=== PATIENT | male | born 1945 | race Caucasian/White ===

== ENCOUNTER 2018-07-19 09:18 | Observation (INO) | payer OTHER ==
[2018-07-19] MEDS ORDERED: ALBUTEROL 2.5 MG/3 ML NEB SOL ONE (09:48)
[2018-07-19] MEDS ORDERED: Levofloxacin500mg IV 0 MG/0 ML BAG IV ONE (09:48)
[2018-07-19] MEDS ORDERED: predniSONE 20 MG TAB ONE (09:48)
[2018-07-19] MEDS ORDERED: IPRATROPIUM BROM 0.5MG/2.5ML ONE (09:48)
[2018-07-19 10:06] LABS: Absolute Lymphocytes (CBC) 1.2 K/uL (0.7-4.9); Absolute Neutrophil 9.4 K/uL (1.8-8.0); Basophils % 0.4 % (0-1.3); Hematocrit 51.4 % (39.6-49.0); Lymphocytes % 10.5 % (15.3-44.8); Monocytes % 8.3 % (3.3-12.3)
[2018-07-19] MEDS ORDERED: levoFLOXacin 500 MG TAB ONE (10:11)
--- NOTE | 2018-07-19 10:14 | RAD REPORT ---
EXAM DESCRIPTION: RAD - Chest Single View - 07/19/2018 10:08 am CLINICAL HISTORY: COPD Chest pain. COMPARISON: No comparisons FINDINGS: Portable technique limits examination quality. The lungs are mildly emphysematous but clear. The heart is normal in size. No displaced fractures. IMPRESSION: COPD.
[2018-07-19 10:21] LABS: Albumin 3.8 g/dL (3.4-5.0); Bilirubin Direct 0.2 mg/dL (0-0.2); Bilirubin Total 0.4 mg/dL (0.2-1.0); Protein, Total 7.8 g/dL (6.4-8.2)
--- NOTE | 2018-07-19 10:39 | EDPHYS ---
Physician Documentation [facility] Name: Wil Jacobson Age: 72 yrs Sex: Male : 1945 Arrival Date: 07/19/2018 Time: 09:21 Bed 20 Private MD: Babatunde Marti T ED Physician Chuy Gunn HPI: 07/19 09:50 This 72 yrs old Male presents to ER via Ambulatory with complaints of snw Breathing Difficulty, Congestion. 09:50 The patient has shortness of breath at rest. Onset: The symptoms/episode began/occurred snw suddenly, 5 day(s) ago, and became persistent. Duration: The symptoms are continuous. Associated signs and symptoms: Pertinent positives: non-productive cough. Severity of symptoms: At their worst the symptoms were moderate in the emergency department the symptoms are unchanged. It is unknown whether or not the patient has had similar symptoms in the past. sees Dr. Lee, went to this am and was sent to ED. 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 - Social history:: Smoking status: Patient uses tobacco products, smokes one pack cigarettes per day. - Ebola Screening: : No symptoms or risks identified at this time. ROS: 09:48 Eyes: Negative for injury, pain, redness, and discharge, ENT: Negative for injury, snw pain, and discharge, Neck: Negative for injury, pain, and swelling. 09:48 Cardiovascular: Negative for chest pain, palpitations, and edema. 09:48 Abdomen/GI: Negative for abdominal pain, nausea, vomiting, diarrhea, and constipation, Back: Negative for injury and pain, : Negative for injury, bleeding, discharge, and swelling, MS/Extremity: Negative for injury and deformity, Skin: Negative for injury, rash, and discoloration, Neuro: Negative for headache, weakness, numbness, tingling, and seizure. 09:48 Constitutional: Positive for body aches, malaise. 09:48 Respiratory: Positive for cough, dyspnea on exertion, orthopnea, shortness of breath, wheezing. Exam: 09:47 Head/Face: Normocephalic, atraumatic. Eyes: Pupils equal round and reactive to light, snw extra-ocular motions intact. Lids and lashes normal. Conjunctiva and sclera are non-icteric and not injected. Cornea within normal limits. Periorbital areas with no swelling, redness, or edema. ENT: Nares patent. No nasal discharge, no septal abnormalities noted. Tympanic membranes are normal and external auditory canals are clear. Oropharynx with no redness, swelling, or masses, exudates, or evidence of obstruction, uvula midline. Mucous membranes moist. Neck: Trachea midline, no thyromegaly or masses palpated, and no cervical lymphadenopathy. Supple, full range of motion without nuchal rigidity, or vertebral point tenderness. No Meningismus. Chest/axilla: Normal chest wall appearance and motion. Nontender with no deformity. No lesions are appreciated. 09:47 Back: No spinal tenderness. No costovertebral tenderness. Full range of motion. Skin: Warm, dry with normal turgor. Hero color with no rashes, no lesions, and no evidence of cellulitis. MS/ Extremity: Pulses equal, no cyanosis. Neurovascular intact. Full, normal range of motion. Neuro: Awake and alert, GCS 15, oriented to person, place, time, and situation. Cranial nerves II-XII grossly intact. Motor strength 5/5 in all extremities. Sensory grossly intact. Cerebellar exam normal. Normal gait. 09:47 Constitutional: The patient appears alert, awake, uncomfortable. 09:47 Cardiovascular: Rate: tachycardic, Rhythm: regular, Pulses: no pulse deficits are appreciated, JVD: is not appreciated. 09:47 Respiratory: moderate respiratory distress is noted, Respirations: labored breathing, asymmetrical chest movement, accessory muscle usage, prolonged exhalation, pursed lip breathing, shallow respirations, tachypnea, Breath sounds: decreased breath sounds, that are moderate, wheezing: expiratory that is severe, is heard diffusely. 09:47 Abdomen/GI: Inspection: distension, that is moderate, Palpation: abdomen is soft and non-tender. Vital Signs: 09:34 BP 180 / 92; Pulse 105; Resp 22; Temp 98.2; Pulse Ox 94% on R/A; Pain 0/10; hb 10:08 BP 138 / 79; Pulse 110; Resp 26; Pulse Ox 100% on Nebulizer Mask; em 11:45 BP 145 / 72; Pulse 101; Resp 24; Pulse Ox 98% on 3 lpm NC; em 12:57 BP 152 / 71; Pulse 98; Resp 24; Temp 98.5(O); Pulse Ox 98% on 3 lpm NC; Pain 0/10; em 14:01 BP 148 / 69; Pulse 97; Resp 16; Pulse Ox 99% on 3 lpm NC; em MDM: 09:33 Patient medically screened. snw 10:38 Data reviewed: vital signs, nurses notes. snw 07/19 09:37 Order name: Basic Metabolic Panel; Complete Time: 10:23 snw 07/19 09:37 Order name: CBC with Diff; Complete Time: 10:11 snw 07/19 09:37 Order name: LFT's; Complete Time: 10:23 snw 07/19 09:37 Order name: Magnesium; Complete Time: 10:23 snw 07/19 09:37 Order name: XRAY Chest (1 view); Complete Time: 10:17 snw 07/19 09:37 Order name: Blood Culture* snw 07/19 09:37 Order name: EKG; Complete Time: 09:38 snw 07/19 09:37 Order name: Cardiac monitoring; Complete Time: 10:01 snw 07/19 09:37 Order name: EKG - Nurse/Tech; Complete Time: 10:01 snw 07/19 13:43 Order name: Diet Heart Healthy; Complete Time: 13:43 em 07/19 09:37 Order name: IV Saline Lock; Complete Time: 10:01 snw 07/19 09:37 Order name: Labs collected and sent; Complete Time: 10:01 snw 07/19 09:37 Order name: O2 Per Protocol; Complete Time: 10: snw 07/19 09:37 Order name: O2 Sat Monitoring; Complete Time: 10:01 snw Administered Medications: 09:46 Drug: predniSONE 60 mg Route: PO; em 10:22 Follow up: Response: No adverse reaction em 09:46 Drug: Albuterol - atroVENT (3:1) (2.5 mg - 0.5 mg) 3 ml Route: Nebulizer; em 10:22 Follow up: Response: No adverse reaction; Marked relief of symptoms em 10:18 Drug: LevaQUIN 500 mg Route: PO; em 10:42 Follow up: Response: No adverse reaction em 10:42 Drug: Nicoderm CQ 21 mg/24 hr 1 patches Route: Transdermal; Site: anterior chest wall; em 11:30 Follow up: Response: No adverse reaction hb Disposition: 07/19/18 10:38 Hospitalization ordered by Ayaz Lee for Observation. Preliminary diagnosis is Chronic obstructive pulmonary disease, unspecified. - Bed requested for Telemetry/MedSurg (observation). - Status is Observation. em - Condition is Stable. - Problem is an acute exacerbation. - Symptoms have worsened. UTI on Admission? No Addendum: 07/21/2018 15:28 Co-signature as Attending Physician, Chuy Gunn MD. m a2 Signatures: Dispatcher [employer] EDMackenzie Gonsales, TOOL HARDENER-C TOOL HARDENER-Csnw Jonny Uribe, MANAGER CARD MANAGER CARD em Johana Catalan, ZOE RN Judith Winslow RN RN df Chuy Gunn MD MD ma2 Corrections: (The following items were deleted from the chart) 07/19 11:58 10:38 Hospitalization Ordered by Ayaz Lee DO for Observation. Preliminary df diagnosis is Chronic obstructive pulmonary disease, unspecified. Bed requested for Telemetry/MedSurg (observation). Status is Observation. Condition is Stable. Problem is an acute exacerbation. Symptoms have worsened. UTI on Admission? No. snw 14:10 11:58 07/19/2018 10:38 Hospitalization Ordered by Ayaz Lee DO for Observation. em Preliminary diagnosis is Chronic obstructive pulmonary disease, unspecified. Bed requested for Telemetry/MedSurg (observation). Status is Observation. Condition is Stable. Problem is an acute exacerbation. Symptoms have worsened. UTI on Admission? No. df
--- NOTE | 2018-07-19 10:39 | ER ---
Nurse's Notes [facility] Name: Wil Jacobson Age: 72 yrs Sex: Male : 1945 Arrival Date: 07/19/2018 Time: 09:21 Bed 20 Private MD: Babatunde Marti T Diagnosis: Chronic obstructive pulmonary disease, unspecified Presentation: 07/19 09:34 Presenting complaint: Patient states: SOB x 4 days, worse over last 2 days. Denies hb cough/fever. Transition of care: patient was not received from another setting of care. Onset of symptoms was July 16, 2018. Risk Assessment: Do you want to hurt yourself or someone else? Patient reports no desire to harm self or others. Care prior to arrival: None. 09:34 Method Of Arrival: Ambulatory hb 09:34 Acuity: LUCIO 2 hb 09:40 Initial Sepsis Screen: Does the patient meet any 2 criteria? RR > 20 per min. HR > 90 em bpm. Yes Does the patient have a suspected source of infection? Yes: Productive cough/pneumonia. 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 - Social history:: Smoking status: Patient uses tobacco products, smokes one pack cigarettes per day. - Ebola Screening: : No symptoms or risks identified at this time. Screenin:39 Abuse screen: Denies threats or abuse. Denies injuries from another. Nutritional hb screening: No deficits noted. Tuberculosis screening: No symptoms or risk factors identified. Fall Risk None identified. Assessment: 09:40 General: Appears in no apparent distress. uncomfortable, ill, Behavior is cooperative, em anxious, Denies fever. Pain: Denies pain. Neuro: Level of Consciousness is awake, alert, obeys commands, Oriented to person, place, time, situation. Cardiovascular: Reports shortness of breath, Denies chest pain, Rhythm is sinus tachycardia. Respiratory: Airway is patent Respiratory effort is labored, Respiratory pattern is tachypnea Breath sounds with wheezes bilaterally. GI: Abdomen is round non-distended. Derm: Skin is intact, is healthy with good turgor, Skin is pink, warm \T\ dry. Musculoskeletal: Range of motion: intact in all extremities. 09:55 Reassessment: I agree with previous assessment. hb 10:23 Reassessment: Patient appears in no apparent distress at this time. pt SPO2 94% after em breathing treatment, placed on 3 L via NC, reports improvement SPO2 98%. 10:44 Reassessment: Patient appears in no apparent distress at this time. Patient and/or em family updated on plan of care and expected duration. Pain level reassessed. Patient is alert, oriented x 3, equal unlabored respirations, skin warm/dry/pink. Dr. Lee at bedside Patient states symptoms have improved. 11:45 Reassessment: Patient appears in no apparent distress at this time. Patient and/or em family updated on plan of care and expected duration. Pain level reassessed. Patient is alert, oriented x 3, equal unlabored respirations, skin warm/dry/pink. RR 22-26 unlabored Patient denies pain at this time. Patient states feeling better. Patient states symptoms have improved. 13:01 Reassessment: Patient appears in no apparent distress at this time. Patient and/or em family updated on plan of care and expected duration. Pain level reassessed. Patient is alert, oriented x 3, equal unlabored respirations, skin warm/dry/pink. Patient denies pain at this time. Patient states feeling better. Patient states symptoms have improved. 13:58 Reassessment: Patient appears in no apparent distress at this time. Patient and/or em family updated on plan of care and expected duration. Pain level reassessed. Patient is alert, oriented x 3, equal unlabored respirations, skin warm/dry/pink. Vital Signs: 09:34 BP 180 / 92; Pulse 105; Resp 22; Temp 98.2; Pulse Ox 94% on R/A; Pain 0/10; hb 10:08 BP 138 / 79; Pulse 110; Resp 26; Pulse Ox 100% on Nebulizer Mask; em 11:45 BP 145 / 72; Pulse 101; Resp 24; Pulse Ox 98% on 3 lpm NC; em 12:57 BP 152 / 71; Pulse 98; Resp 24; Temp 98.5(O); Pulse Ox 98% on 3 lpm NC; Pain 0/10; em 14:01 BP 148 / 69; Pulse 97; Resp 16; Pulse Ox 99% on 3 lpm NC; em ED Course: 09:21 Patient arrived in ED. mr 09:22 Babatunde Marti MD is Private Physician. mr 09:32 [facility]C [facility] snw 09:32 Chuy Gunn MD is Attending Physician. snw 09:34 Arm band placed on. hb 09:36 Triage completed. hb 09:40 Patient has correct armband on for positive identification. Placed in gown. Bed in low em position. Call light in reach. Side rails up X2. Adult w/ patient. night monitor on. Pulse ox on. NIBP on. 09:46 Jonny Uribe LVN is Primary Nurse. em 09:50 Inserted saline lock: 20 gauge in right forearm, using aseptic technique. Blood em collected. 09:50 Initial lab(s) drawn, by me, sent to lab. First set of blood cultures drawn. em 10:05 EKG done, by health technical writer. reviewed by Mackenzie GARNER. sm3 10:07 X-ray completed. Portable x-ray completed in exam room. Patient tolerated procedure tm4 well. 10:08 XRAY Chest (1 view) In Process Unspecified. EDMS 10:37 Ayaz Lee DO is Hospitalizing Provider. snw 13:00 No provider procedures requiring assistance completed. Patient admitted, IV remains in em place. Administered Medications: 09:46 Drug: predniSONE 60 mg Route: PO; em 10:22 Follow up: Response: No adverse reaction em 09:46 Drug: Albuterol - atroVENT (3:1) (2.5 mg - 0.5 mg) 3 ml Route: Nebulizer; em 10:22 Follow up: Response: No adverse reaction; Marked relief of symptoms em 10:18 Drug: LevaQUIN 500 mg Route: PO; em 10:42 Follow up: Response: No adverse reaction em 10:42 Drug: Nicoderm CQ 21 mg/24 hr 1 patches Route: Transdermal; Site: anterior chest wall; em 11:30 Follow up: Response: No adverse reaction hb Outcome: 10:38 Decision to Hospitalize by Provider. snw 13:58 Admitted to Med/surg accompanied by tech, family with patient, via wheelchair, room em 218, with oxygen, with chart, Report called to ZOE Wolff 13:58 Condition: good 13:58 Instructed on the need for admit, Demonstrated understanding of instructions. 14:10 Patient left the ED. em Signatures: Dispatcher [employer] EDMS Mackenzie Leger, DIRECTOR OF PHILANTHROPY-C DIRECTOR OF PHILANTHROPY-Csnw Geno Perez, Perla tm4 Jonny Uribe, GEOSPATIAL APPLICATIONS DEVELOPER GEOSPATIAL APPLICATIONS DEVELOPER em Johana Catalan RN RN Maria Fernanda Riddle 3 Corrections: (The following items were deleted from the chart) 14:02 14:01 BP 148 / 69; Pulse 97bpm; Resp 16bpm; Pulse Ox 99% RA; em em
[2018-07-19] MEDS ORDERED: NICOTINE 21 MG/PAT TD ONE (10:47)
--- NOTE | 2018-07-19 11:11 | P.HP ---
Certification for Inpatient Patient admitted to: Observation With expected LOS: <2 Midnights Patient will require the following post-hospital care: None Practitioner: I am a practitioner with admitting privileges, knowledge of patient current condition, hospital course, and medical plan of care. Services: Services provided to patient in accordance with Admission requirements found in Title 42 Section 412.3 of the Code of Federal Regulations Patient History Date of Service: 07/19/18 Primary Care Provider: Dr. Marti Reason for admission: Shortness of breath History of Present Illness: 72-year-old male presented to the emergency room with shortness of breath. Patient with history of COPD, tobacco abuse, alcohol abuse and hypertension. Patient presented with shortness of breath. He reports this started on Monday. He denies any fever, chills. Increased wheezing noted. Patient reports a history of bronchitis in the distant past. Patient is taking inhalers as recommended. In the ER patient was evaluated. Patient was given several breathing treatments including IV steroid. Blood pressure 141/71. On lab white count 11.1. Hemoglobin 17.5. Sodium 134, potassium 4.0, BUN of 15, creatinine 0.9 with a GFR 78. Glucose 109. AST 67. Chest x-ray showed no evidence of pneumonia. Patient was admitted for observation. When I saw the patient ER, he appeared stable. Respiratory status improved. Patient on nasal cannula. Patient reports alcohol and tobacco abuse. He still drinks about 4 glasses of liquor per day. Home medications list reviewed: Yes - Past Medical/Surgical History Diabetic: No -: COPD -: Tobacco abuse -: Alcohol abuse -: Hypertension -: GERD -: Hernia repair Psychosocial/ Personal History: Patient is . He has 1 child. He is retired. - Family History Father -: Cancer (Throat cancer) - Social History Smoking Status: Heavy Tobacco smoker (>10 cigarettes/day) Counseled patient to stop smoking for: less than 10 minutes Smoking therapy provided: Yes Patient receptive to therapy: No Alcohol use: Yes CD- Drugs: No Caffeine use: Yes Place of Residence: Home Review of Systems General: As per HPI Eyes: Unremarkable ENT: Nose Congestion, As per HPI Respiratory: Cough, Shortness of Breath, Wheezing, As per HPI Cardiovascular: Unremarkable Gastrointestinal: Unremarkable Genitourinary: Unremarkable Musculoskeletal: Unremarkable Integumentary: Unremarkable Neurological: Unremarkable Lymphatics: Unremarkable Physical Examination - Physical Exam General: Alert, In no apparent distress, Oriented x3, Cooperative HEENT: Atraumatic, Normocephalic, PERRLA, Other (Nasal congestion bilateral) Neck: Supple, No Thyromegaly Respiratory: Expiratory wheezes (Bilateral), Inspiratory wheezes (Bilateral) Cardiovascular: Normal pulses, Regular rate/rhythm Gastrointestinal: Normal bowel sounds, Soft and benign, Non-distended, No ascites, No tenderness, No masses, No rebound, No guarding Musculoskeletal: No contractures, No erythema, No tenderness, No warmth Integumentary: No tenderness/swelling, No erythema, No warmth, No cyanosis Neurological: Normal speech, Normal strength at 5/5 x4 extr, Normal tone, Normal affect - Studies Laboratory Data (last 24 hrs) 07/19/18 09:50: WBC 11.8 H, Hgb 17.5, Hct 51.4 H, Plt Count 135 L 07/19/18 09:50: Sodium 134 L, Potassium 4.0, BUN 15, Creatinine 0.95, Glucose 109 H, Magnesium 2.0, Total Bilirubin 0.4, AST 67 H, ALT 72, Alkaline Phosphatase 92 Assessment and Plan - Plan Impression: COPD exacerbation Hypertension Tobacco abuse Alcohol abuse Mild dehydration Plan: COPD exacerbation: Patient will be admitted for treatment. Will continue with steroids and nebulized treatments. Will maintain sats above 90%. Will wean off oxygen. Will reassess again tomorrow. Check for influenza and strep. Will recheck chest x-ray in the morning. No pneumonia identified. Will start Zithromax for possible atypical pneumonitis. Tobacco and alcohol cessation addressed in detail. Will provide nicotine patch. Will check echocardiogram. Will provide medication for cough and congestion. Anticipate discharge in the next 24-48 hr. Hypertension: Will continue with his home medication. Will monitor and address appropriately. Tobacco abuse: Lifestyle modification education addressed. Will provide nicotine patch. Alcohol abuse: Alcohol cessation addressed in detail. Will provide Ativan as needed. Will start thiamine and folic acid. Mild dehydration: Will start low-dose IV fluids. Will monitor closely. Will reassess tomorrow. Discharge Plan: Home Plan to discharge in: 24 Hours - Advance Directives Does patient have a Living Will: No Does patient have a Durable POA for Healthcare: No - Code Status/Comfort Care Code Status Assessed: Yes (Full code.) Time Spent Managing Pts Care (In Minutes): 55
[2018-07-19] MEDS ORDERED: ACETAMINOPHEN 500 MG TAB PO PRN (14:03)
[2018-07-19] MEDS ORDERED: BENZONATATE 100 MG CAP PO PRN (14:03)
[2018-07-19] MEDS ORDERED: ONDANSETRON 4 MG/2 ML VIAL IV PRN (14:03)
[2018-07-19] MEDS ORDERED: LORazepam 2 MG/ML VIAL IV PRN (14:03)
[2018-07-19] MEDS ORDERED: IPRATROPIUM BROM 0.5MG/2.5ML NEB PRN (14:03)
[2018-07-19] MEDS ORDERED: ALBUTEROL 2.5 MG/3 ML NEB SOL NEB PRN (14:03)
[2018-07-19 14:43] LABS: Thyroid Stimulating Hormone 1.44 uIU/mL (0.360-3.740)
[2018-07-19] MEDS: NA CHLORIDE 0.9% 1,000 ML IV SCH (14:58)
--- NOTE | 2018-07-19 15:35 | EKG ---
Test Date: 2018-07-19 Test Time: 09:54:50 Cable Machine Operator: TIARA MEASUREMENT RESULTS: Intervals: Rate: 103 MS: 126 QRSD: 90 QT: 346 QTc: 453 [place]: P: 82 MS: 126 QRS: 48 T: 64 INTERPRETIVE STATEMENTS: Sinus tachycardia Nonspecific ST and T wave abnormality Abnormal ECG Compared to ECG 11/13/2000 16:31:00 ST (T wave) deviation now present Sinus rhythm no longer present Electronically Signed On 07-19-18 15:34:34 MOLDING SUPERVISOR by Trace Baer
[2018-07-19] MEDS ORDERED: ENOXAPARIN 40 MG/0.4 ML SQ SCH (17:00)
[2018-07-19 18:11] LABS: Urine Appearance CLEAR; Urine Blood NEGATIVE (NEG); Urine Color DK YELLOW; Urine Glucose NEGATIVE (NEG); Urine Protein 1+ (NEG); Urine Specific Gravity >=1.030 (1.005-1.030); Urine pH 5.5 (5.0-7.0)
[2018-07-19 18:21] LABS: Urine Bilirubin NEGATIVE (NEG)
[2018-07-19 18:22] LABS: Urine Microscopic Reflex ORDER UMIC
[2018-07-19 19:09] LABS: Urine RBC <5 /HPF (NONE SEEN)
[2018-07-19 19:10] LABS: Urine Bacteria <20 /HPF (NONE SEEN); Urine Culture Reflex Order NOT NEEDED; Urine Mucus 1+ /HPF (NONE SEEN)
[2018-07-19] MEDS: ARFORMOTEROL TARTRATE 15 MCG/2 ML VIAL.NEB NEB SCH (20:00)
[2018-07-19] MEDS: predniSONE 20 MG TAB PO SCH (20:49)
[2018-07-19] MEDS: FLUTICASONE 50MCG NASAL SPRAY NAS SCH (20:49)
[2018-07-19] MEDS: GUAIFENESIN 600 MG SA TAB PO SCH (20:49)
[2018-07-20] MEDS: NA CHLORIDE 0.9% 1,000 ML IV SCH (05:37)
[2018-07-20 05:59] LABS: Absolute Lymphocytes (CBC) 1.2 K/uL (0.7-4.9); Absolute Monocytes 0.5 K/uL (0.1-1.3); Basophils % 0.1 % (0-1.3); Eosinophils % 0.1 % (0-4.4); Lymphocytes % 14.2 % (15.3-44.8); MPV 10.4 fL (7.6-11.3); Monocytes % 5.8 % (3.3-12.3); RBC Red Blood Cell Count 4.47 M/uL (4.33-5.43)
[2018-07-20 06:24] LABS: BUN Blood Urea Nitrogen 16 mg/dL (7-18); Bicarbonate 26 mmol/L (21-32); Glucose Level 124 mg/dL (74-106); HDL Cholesterol 43 mg/dL (40-60); LDL Cholesterol, Calculated 111 (<130); Magnesium 2.1 mg/dL (1.8-2.4); Potassium 4.4 mmol/L (3.5-5.1); Sodium Level 135 mmol/L (136-145)
[2018-07-20] MEDS ORDERED: PANTOPRAZOLE 40MG TABLET PO SCH (06:30)
[2018-07-20] MEDS: ARFORMOTEROL TARTRATE 15 MCG/2 ML VIAL.NEB NEB SCH (07:45)
--- NOTE | 2018-07-20 08:57 | RAD REPORT ---
EXAM DESCRIPTION: RAD - Chest Pa And Lat (2 Views) - 07/20/2018 6:54 am CLINICAL HISTORY: follow up COPD Chest pain. COMPARISON: Chest Single View dated 07/19/2018 FINDINGS: Mild COPD is present. No focal infiltrate is detected. The heart is normal in size. No dis placed fractures. IMPRESSION: Mild COPD.
[2018-07-20] MEDS ORDERED: AZITHROMYCIN 250 MG TAB PO SCH (09:00)
[2018-07-20] MEDS ORDERED: NICOTINE 21 MG/PAT TD SCH (09:00)
[2018-07-20] MEDS ORDERED: ASPIRIN EC 81 MG TAB PO SCH (09:00)
[2018-07-20] MEDS ORDERED: FOLIC ACID 1 MG TABLET PO SCH (09:00)
[2018-07-20] MEDS ORDERED: THIAMINE HCL 100 MG TABLET PO SCH (09:00)
[2018-07-20] MEDS ORDERED: METOPROLOL XL 25 MG TAB PO SCH (09:00)
--- NOTE | 2018-07-20 09:35 | P.DS ---
Admission Date: 07/19/18 Discharge Date: 07/20/18 Primary Care Provider: Dr. Marti Disposition: ROUTINE DISCHARGE Discharge Condition: GOOD Reason for Admission: Shortness of breath Consultations: none Procedures: CXR: Mild COPD, no pneumonia Medical Problem List: COPD exacerbation Hypertension Tobacco abuse Alcohol abuse Mild dehydration Allergic rhinitis GERD Gout Brief History of Present Illness: 72-year-old male presented to the emergency room with shortness of breath. Patient with history of COPD, tobacco abuse, alcohol abuse and hypertension. Patient presented with shortness of breath. He reports this started on Monday. He denies any fever, chills. Increased wheezing noted. Patient reports a history of bronchitis in the distant past. Patient is taking inhalers as recommended. In the ER patient was evaluated. Patient was given several breathing treatments including IV steroid. Blood pressure 141/71. On lab white count 11.1. Hemoglobin 17.5. Sodium 134, potassium 4.0, BUN of 15, creatinine 0.9 with a GFR 78. Glucose 109. AST 67. Chest x-ray showed no evidence of pneumonia. Patient was admitted for observation. When I saw the patient ER, he appeared stable. Respiratory status improved. Patient on nasal cannula. Patient reports alcohol and tobacco abuse. He still drinks about 4 glasses of liquor per day. Hospital Course: Patient presented with increasing shortness of breath secondary to COPD exacerbation. Patient was hospitalized. Chest x-ray showed no pneumonia. Influenza test negative. Patient responded well to COPD treatment. Patient has significantly improved. At discharge he did not require oxygen. At discharge he will continue with prednisone 20 mg 1 pill twice daily for 5 days then 1 pill once daily for 5 days. He will also be given Tessalon Perles 100 mg 3 times a day as needed for cough and Mucinex 600 mg twice daily for congestion. Patient may continue with his home medication of Bevespi 1 puff twice daily and Pro air 2 puffs 3 times a day as needed for shortness of breath. Recommendation is for the patient to follow up with pulmonology as an outpatient to establish care and to further address his COPD. Education on COPD will be provided. Prior to discharge echocardiogram to be obtained. This can be followed up by his PCP. Patient with hypertension. This remained stable during his stay. Patient may continue with metoprolol XL 25 mg daily. Recommendation is to maintain blood pressures less 150/80. Further adjustment can be done by his PCP. Patient with tobacco and alcohol abuse. Cessation addressed in detail. Patient appears and plans to quit smoking. Patient will be provided nicotine patch once daily. This can be continued by his PCP. Other options may be offered as an outpatient. Patient will be provided thiamine 100 mg daily due to his alcohol use. Patient has GERD. Zantac has been discontinued. New medication Protonix 40 mg 1 pill once daily is recommended. Patient may benefit with GI evaluation as an outpatient to further evaluate. Patient likely with underlying allergic rhinitis. Patient may continue with Flonase 1 spray per nostril twice daily. Patient with gout. Patient will continue with his medication of allopurinol 300 mg daily. Vital Signs/Physical Exam: Temp Pulse Resp BP Pulse Ox 97.8 F 78 18 134/79 91 07/20/18 00:00 07/20/18 00:00 07/20/18 00:00 07/20/18 00:00 07/20/18 00:00 General: Alert, In no apparent distress, Oriented x3, Cooperative HEENT: Atraumatic Neck: Supple Respiratory: Clear to auscultation bilaterally, Normal air movement Cardiovascular: Normal pulses, Regular rate/rhythm Gastrointestinal: Normal bowel sounds, Soft and benign, Non-distended, No tenderness, No masses, No rebound, No guarding Musculoskeletal: No erythema, No tenderness, No warmth Integumentary: No tenderness/swelling, No erythema, No warmth, No cyanosis Neurological: Normal speech, Normal strength at 5/5 x4 extr, Normal tone, Normal affect Lymphatics: No axilla or inguinal lymphadenopathy Laboratory Data at Discharge: WBC 8.8 K/uL (4.3-10.9) D 07/20/18 05:03 Hgb 15.5 g/dL (13.6-17.9) 07/20/18 05:03 Hct 45.0 % (39.6-49.0) 07/20/18 05:03 Plt Count 116 K/uL (152-406) L 07/20/18 05:03 Sodium 135 mmol/L (136-145) L 07/20/18 05:03 Potassium 4.4 mmol/L (3.5-5.1) 07/20/18 05:03 BUN 16 mg/dL (7-18) 07/20/18 05:03 Creatinine 0.76 mg/dL (0.55-1.3) 07/20/18 05:03 Glucose 124 mg/dL (74-106) H 07/20/18 05:03 Magnesium 2.1 mg/dL (1.8-2.4) 07/20/18 05:03 Total Bilirubin 0.4 mg/dL (0.2-1.0) 07/19/18 09:50 AST 67 U/L (15-37) H 07/19/18 09:50 ALT 72 U/L (12-78) 07/19/18 09:50 Alkaline Phosphatase 92 U/L (45-117) 07/19/18 09:50 Triglycerides 231 mg/dL (<150) H 07/20/18 05:03 Cholesterol 200 mg/dL (<200) 07/20/18 05:03 HDL Cholesterol 43 mg/dL (40-60) 07/20/18 05:03 Cholesterol/HDL Ratio 4.65 07/20/18 05:03 Home Medications: Allopurinol 300 mg PO DAILY 07/19/18 Calcium Carbonate 1 tab PO TID 07/19/18 Glycopyrrolate/Formoterol Fum [Bevespi Aerosphere Inhaler] 1 unit IH BID Metoprolol Succinate 25 mg PO DAILY 07/19/18 Albuterol Sulfate [Proair Hfa] 8.5 gm IH TID PRN #1 hfa.aer.ad 07/20/18 Benzonatate [Tessalon Perle*] 100 mg PO TID PRN #30 cap 07/20/18 Fluticasone [Flonase 50MCG Nasal [place]*] 1 sprays MELISSA BID #1 btl 07/20/18 Guaifenesin [Mucinex] 600 mg PO BID #30 tab.er.12h 07/20/18 Nicotine [Nicoderm*] 21 mg TD DAILY #30 patch.td24 07/20/18 Pantoprazole [Protonix Tab*] 40 mg PO DAILYAC #30 tab 07/20/18 Thiamine HCl [Vitamin B-1*] 100 mg PO DAILY #30 tablet 07/20/18 predniSONE [Prednisone*] 20 mg PO SEECOM #15 tab 07/20/18 New Medications: Albuterol Sulfate [Proair Hfa] 8.5 gm IH TID PRN #1 hfa.aer.ad PRN Reason: Shortness Of Breath Benzonatate [Tessalon Perle*] 100 mg PO TID PRN #30 cap PRN Reason: Cough Fluticasone [Flonase 50MCG Nasal [place]*] 1 sprays MELISSA BID #1 btl Guaifenesin [Mucinex] 600 mg PO BID #30 tab.er.12h Nicotine [Nicoderm*] 21 mg TD DAILY #30 patch.td24 Pantoprazole [Protonix Tab*] 40 mg PO DAILYAC #30 tab predniSONE [Prednisone*] 20 mg PO SEECOM #15 tab Thiamine HCl [Vitamin B-1*] 100 mg PO DAILY #30 tablet Patient Discharge Instructions: 1. Patient will need to follow up his PCP in 1 week to follow up this hospitalization. 2. Patient presented with increasing shortness of breath secondary to COPD exacerbation. Patient was hospitalized. Chest x-ray showed no pneumonia. Influenza test negative. Patient responded well to COPD treatment. Patient has significantly improved. At discharge he did not require oxygen. At discharge he will continue with prednisone 20 mg 1 pill twice daily for 5 days then 1 pill once daily for 5 days. He will also be given Tessalon Perles 100 mg 3 times a day as needed for cough and Mucinex 600 mg twice daily for congestion. Patient may continue with his home medication of Bevespi 1 puff twice daily and Pro air 2 puffs 3 times a day as needed for shortness of breath. Recommendation is for the patient to follow up with pulmonology as an outpatient to establish care and to further address his COPD. Education on COPD will be provided. Prior to discharge echocardiogram to be obtained. This can be followed up by his PCP. 3. Patient with hypertension. This remained stable during his stay. Patient may continue with metoprolol XL 25 mg daily. Recommendation is to maintain blood pressures less 150/80. Further adjustment can be done by his PCP. 4. Patient with tobacco and alcohol abuse. Cessation addressed in detail. Patient appears and plans to quit smoking. Patient will be provided nicotine patch once daily. This can be continued by his PCP. Other options may be offered as an outpatient. Patient will be provided thiamine 100 mg daily due to his alcohol use. 5. Patient has GERD. Zantac has been discontinued. New medication Protonix 40 mg 1 pill once daily is recommended. Patient may benefit with GI evaluation as an outpatient to further evaluate. 6. Patient likely with underlying allergic rhinitis. Patient may continue with Flonase 1 spray per nostril twice daily. 7. Patient with gout. Patient will continue with his medication of allopurinol 300 mg daily. Diet: AHA Activity: Ad deisy Time spent managing pt's care (in minutes): 55
[2018-07-20] MEDS: GUAIFENESIN 600 MG SA TAB PO SCH (10:07)
[2018-07-20] MEDS: predniSONE 20 MG TAB PO SCH (10:07)
[2018-07-20] MEDS: FLUTICASONE 50MCG NASAL SPRAY NAS SCH (10:36)
--- NOTE | 2018-07-20 12:53 | ECHO ---
HEIGHT: 5 ft 11 in WEIGHT: 165 lb 0 oz DATE OF STUDY: 07/20/[address]: Ayaz Lee DO 2-DIMENSIONAL: YES M.MODE: YES DOPPLER: YES COLOR FLOW: YES TDS: PORTABLE: DEFINITY: BUBBLE STUDY: DIAGNOSIS: SHORTNESS OF BREATH CARDIAC HISTORY: CATHERIZATION: NO SURGERY: NO PROSTHETIC VALVE: NO PACEMAKER: NO MEASUREMENTS (cm) DIASTOLIC (NORMALS) SYSTOLIC (NORMALS) IVSd 1.0 (0.6-1.2) LA Diam 3.9 (1.9-4.0) LVEF 60% LVIDd 3.8 (3.5-5.7) LVIDs 2.6 (2.0-3.5) %FS 31% LVPWd 1.0 (0.6-1.2) Ao Diam 2.7 (2.0-3.7) 2 DIMENSIONAL ASSESSMENT: RIGHT ATRIUM: NORMAL LEFT ATRIUM: NORMAL RIGHT VENTRICLE: NORMAL LEFT VENTRICLE: NORMAL TRICUSPID VALVE: NORMAL MITRAL VALVE: NORMAL PULMONIC VALVE: NORMAL AORTIC VALVE: NORMAL PERICARDIAL EFFUSION: NONE AORTIC ROOT: NORMAL LEFT VENTRICULAR WALL MOTION: NORMAL DOPPLER/COLOR FLOW: MILD TRICUSPID REGURGITATION. NORMAL RIGHT VENTRICULAR SYSTOLIC PRESSURE. COMMENTS: NORMAL TWO DIMENSIONAL ECHOCARDIOGRAM. MILD TRICUSPID REGURGITATION. TECHNOLOGIST: MELIZA BENNETT
== END 2018-07-20 10:55 | disposition home or self-care (01) ==
LOC: ER 09:18 → ERHOLD 10:57 → 2ND 12:54
PROVIDERS: ADMIT Family Medicine; ATTEND Family Medicine
DX: J44.1 Chronic obstructive pulmonary disease with (acute) exacerbation (principal); I10 Essential (primary) hypertension; F10.10 Alcohol abuse, uncomplicated; E86.0 Dehydration; J30.9 Allergic rhinitis, unspecified; K21.9 Gastro-esophageal reflux disease without esophagitis; M10.9 Gout, unspecified; F17.210 Nicotine dependence, cigarettes, uncomplicated
CPT/HCPCS: 36415; 71045; 71046; 80048 ×2; 80061; 80076; 83735 ×2; 84439; 84443; 85025 ×2; 87040 ×2; 87070; 87081; 87804 ×2; 93005; 93306; 94640 ×2; 99285; G0378 ×2; J1650; J7030 ×2; J7605 ×2; 81003; 81015; J7512

== ENCOUNTER 2022-04-13 01:36 | Inpatient (IN) | payer OTHER ==
[2022-04-13 01:59] LABS: Protime INR 1.29
[2022-04-13 02:01] LABS: Absolute Lymphocytes (CBC) 3.8 K/uL (0.7-4.9); Lymphocytes % 28.7 % (15.3-44.8); MCV 78.2 fL (80-100); MPV 9.9 fL (7.6-11.3)
[2022-04-13 02:11] LABS: Urine Blood Trace-intact (Negative); Urine Glucose Negative (Negative); Urine Protein 2+ (Negative); Urine Specific Gravity 1.015 (1.005-1.030); Urine pH 5.5 (5.0-7.0)
[2022-04-13 02:12] LABS: Arterial Blood Carboxyhemoglob 0.9 % (0-1.5); Blood Gas Oxyhemoglobin 95.9 % (94-97); Blood O2 Saturation 98.4 % (92-98.5)
[2022-04-13] MEDS ORDERED: propofoL 1,000 MG/100 ML VIAL IV ONE (02:15)
[2022-04-13] MEDS ORDERED: NA CHLORIDE 0.9% 1,000 ML ONE (02:16)
[2022-04-13 02:32] LABS: Albumin 3.1 g/dL (3.4-5.0); Bilirubin Direct 0.3 mg/dL (0-0.2); Bilirubin Total 0.6 mg/dL (0.2-1.0); Magnesium 1.8 mg/dL (1.8-2.4); Potassium 3.5 mmol/L (3.5-5.1); Protein, Total 6.4 g/dL (6.4-8.2); Troponin High Sensitivity 37.8 pg/mL (<58.9)
[2022-04-13 02:54] LABS: SARS-CoV-2 Antigen Rapid Res Negative (Negative)
[2022-04-13 02:54] LABS: Urine Blood Negative (Negative); Urine Glucose Negative (Negative); Urine Protein 1+ (Negative)
[2022-04-13 02:57] LABS: Blood Morphology Comment NOT SEEN (NOT SEEN); Platelet Estimate ADEQ
[2022-04-13 03:10] LABS: Urine Bacteria <20 /HPF (<20); Urine RBC <5 /HPF (None Seen)
[2022-04-13] MEDS ORDERED: FENTANYL CITR 100 MCG/2 ML ONE (03:31)
--- NOTE | 2022-04-13 08:21 | ER ---
Nurse's Notes [facility] Name: Wil Jacobson Age: 76 yrs Sex: Male : 1945 Arrival Date: 04/13/2022 Time: 01:41 Bed 3 Private MD: Diagnosis: Cardiac arrest due to underlying cardiac condition;Hypotension, unspecified;Do not resuscitate Presentation: 04/13 02:05 Chief complaint: EMS states: stated on scene, " He was SOB all day today, around aa9 midnight he went to the restroom and fell lover, I noticed he stopped breathing." EMS states on arrival no pulse, no rhythm, ET placed. 20 G IV on L AC. Onset of symptoms was April 13, 2022 at 00:00. Care prior to arrival: Assisted ventilation, CPR via thumper performed by EMS IV initiated. 20 GA, in the left antecubital area. 02:05 Method Of Arrival: EMS: [facility] aa9 02:05 Acuity: LUCIO 1 aa9 03:00 Coronavirus screen: At this time, the client does not indicate any symptoms associated as6 with coronavirus-19. Ebola Screen: No symptoms or risks identified at this time. Initial Sepsis Screen:. Initial Sepsis Screen: Does the patient meet any 2 criteria? No. Patient's initial sepsis screen is negative. Does the patient have a suspected source of infection? No. Patient's initial sepsis screen is negative. Risk Assessment: Do you want to hurt yourself or someone else? Unable to obtain. Triage Assessment: 01:38 General: Behavior is unresponsive. Neuro: Level of Consciousness is unresponsive. aa9 Respiratory: Airway via oral intubation Trachea midline. 02:15 Pain: Unable to use pain scale. FLACC scale score is 0 out of 10. Patient is intubated. aa9 Patient is unresponsive. 02:15 General: Appears obese, intubated, bagged by EMT, Thumper in place on stretcher.. aa9 Neuro: Level of Consciousness is unresponsive, Oriented to none. Derm: Skin is pale, Skin temperature is cold. Historical: - Allergies: 02:08 Unable to obtain; aa9 - Home Meds: 02:08 Unable to obtain [Active]; aa9 - PMHx: 02:08 COPD; Tachycardia; Cirrhosis of liver; aa9 - PSHx: 02:08 Unable to Obtain; aa9 - Immunization history:: Adult Immunizations unknown. - Social history:: Smoking status: unknown. Screenin:00 Abuse screen: Denies threats or abuse. Denies injuries from another. Nutritional as6 screening: No deficits noted. Tuberculosis screening: No symptoms or risk factors identified. Fall Risk None identified. Assessment: 01:38 General: Appears obese, Behavior is unresponsive. Pain: Unable to use pain scale. aa9 Patient is intubated. 01:38 Neuro: Level of Consciousness is unresponsive. aa9 01:38 Cardiovascular: Edema is 4+ to left lower thigh, left knee, left midcalf, left ankle, aa9 left foot, left toes, right lower thigh, right knee, right midcalf, right ankle, right foot and right toes. Respiratory: Airway via oral intubation Respiratory pattern is agonal. Derm: Skin is pale, Skin temperature is cold. 01:38 General: Dr Montague, Diana RN, speech professor, Yokasta RN, Rito RT at bedside to receive pt via aa9 stretcher. 01:55 General: Levophed started at 18 G on R AC per Dr. Montague, IV site without redness, aa9 irritation or swelling. . 01:55 Pain: Unable to use pain scale. FLACC scale score is 0 out of 10. Patient is intubated. aa9 Patient is unresponsive. Respiratory: Airway via oral intubation Trachea midline Respiratory pattern is agonal. Derm: Skin is pale, Skin temperature is cold. 02:00 General: Behavior is unresponsive. Pain: Unable to use pain scale. FLACC scale score is aa9 0 out of 10. Patient is intubated. Patient is unresponsive. Neuro: Level of Consciousness is unresponsive, Oriented to none. Respiratory: Airway via oral intubation Trachea midline Respiratory pattern is agonal. Derm: Skin is pale, Skin temperature is cold. 02:04 General: Hill catheter placed with temperature monitoring, urine is clear and yellow, aa9 gravity draining. . 02:29 General: Behavior is unresponsive. Pain: Unable to use pain scale. FLACC scale score is aa9 0 out of 10. Patient is intubated. Patient is unresponsive. Neuro: Level of Consciousness is unresponsive, Oriented to none. Cardiovascular:. Respiratory: Breath sounds with crackles bilaterally. : Hill in place to gravity drainage Urine is clear. 02:29 Derm: Skin is pale, Skin temperature is cold. aa9 02:36 Neuro: Level of Consciousness is unresponsive. aa9 03:02 Neuro: Pupils are non-reactive. as6 04:46 Reassessment: pt spouse Janice Jacobson at bedside with Dr Montague states pt has an advanced bb directive and does not want any life saving measures and does not want to continue any life saving measures. 04:46 General: Per request, Levophed, propofol, NS drips are discontinued. ET tube with aa9 ventilator in place, Hill in place draining clear yellow urine, connected to monitor. . Neuro: Level of Consciousness is unresponsive, Oriented to none. Respiratory: Airway via oral intubation Trachea midline Respiratory pattern is agonal. Derm: Skin is pale, Skin temperature is cold. 05:38 General: RT removed ET. aa9 05:38 General: at bedside. Pain: Unable to use pain scale. FLACC scale score is 0 out of aa9 10. Patient is unresponsive. Neuro: Level of Consciousness is unresponsive, Oriented to none. Respiratory: Airway is compromised Trachea midline Respiratory effort is labored, Respiratory pattern is agonal snoring Sputum is thick, brown. : Hill in place to gravity drainage Urine is clear. Derm: Skin is pale, Skin temperature is cold. 05:55 Pain: Unable to use pain scale. FLACC scale score is 0 out of 10. Patient is aa9 unresponsive. Neuro: Level of Consciousness is unresponsive, Oriented to none. Respiratory: Airway is compromised Trachea midline Respiratory effort is labored, Respiratory pattern is agonal snoring Sputum is thick, brown. Derm: Skin is pale, Skin temperature is cold. 06:04 Pain: Unable to use pain scale. FLACC scale score is 0 out of 10. Patient is aa9 unresponsive. Neuro: Level of Consciousness is unresponsive, Oriented to none. Respiratory: Airway obstructed, Respiratory effort is labored, gasping, Respiratory pattern is agonal. Derm: Skin is pale, Skin temperature is cold. 07:20 General: Appears obese, Behavior is unresponsive. Neuro: Level of Consciousness is vg1 unresponsive, Pupils are non-reactive. Cardiovascular: Capillary refill is > 3 seconds in bilateral fingers. Respiratory: Airway is compromised Respiratory effort is labored, gasping, Respiratory pattern is agonal snoring. Derm: Skin is pale, Skin temperature is cold. 08:30 Reassessment: Patient appears in no apparent distress at this time. suction completed; vg1 family at bedside. 09:30 Reassessment: No changes from previously documented assessment. family at bedside. vg1 10:36 Reassessment: pt cleaned and linen changed. Cardiovascular: Capillary refill < 3 vg1 seconds in bilateral fingers Pulses are absent in right posterior tibial artery, right dorsalis pedis artery, left posterior tibial artery and left dorsalis pedis artery Edema pitting to left midcalf, left ankle, left foot, right midcalf, right ankle and right foot. Derm: Skin is pink. 10:36 GI: Abdomen is round distended, obese, Abd is rigid X 4 quads. vg1 11:07 Reassessment: pt requesting to speak with a manager social work in how to go about vg1 receiving hospice care for pt. Called for manager social work and left message. 11:27 Reassessment: No changes from previously documented assessment. General: Behavior is vg1 unresponsive. Derm: Skin is pink, Skin temperature is warm. 16:14 Reassessment: , Sommer [phone]. tp1 17:22 Reassessment: attempted to give report to Shelbi ENRIQUEZ. unable to take report at this time tp1 due to just receiving 2 patients, will call back. 18:19 Reassessment: JOEY at bedside with pt family. vg1 Vital Signs: 01:39 BP 112 / 67; Pulse 130; Resp 14; Pulse Ox 100% on ETT ambu; aa9 01:45 BP 86 / 59; Pulse 109; Resp 13 A; Pulse Ox 100% on ETT vent; aa9 01:47 BP 89 / 60; Pulse 96; Resp 21 A; Pulse Ox 98% on ETT vent; aa9 01:56 BP 132 / 81; Pulse 112; Resp 21; Pulse Ox 100% on ETT vent; aa9 02:00 BP 140 / 86; Pulse 108; Resp 17 A; Pulse Ox 100% on ETT vent; aa9 02:05 Weight 115 kg; aa9 02:05 BP 144 / 85; Pulse 108; Resp 17 A; Pulse Ox 100% on ETT vent; aa9 02:10 BP 144 / 85; Pulse 106; Resp 15; Pulse Ox 100% on ETT vent; aa9 02:14 BP 134 / 90; Pulse 100; Resp 11; Pulse Ox 100% on ETT vent; aa9 02:20 BP 134 / 80; Pulse 104; Resp 14; Pulse Ox 100% on ETT vent; aa9 02:24 BP 144 / 82; Pulse 100; Resp 17; Pulse Ox 99% on ETT vent; aa9 02:28 BP 138 / 86; Pulse 93; Resp 23; Temp 97.1(C); Pulse Ox 100% on ETT vent; aa9 02:33 BP 138 / 77; Pulse 100; Resp 16 A; Temp 97.1(C); Pulse Ox 100% on ETT vent; aa9 02:39 BP 129 / 70; Pulse 102; Resp 16; Temp 97.1(C); Pulse Ox 100% on ETT vent; aa9 02:43 BP 134 / 83; Pulse 106; Resp 16 A; Temp 97.1(C); Pulse Ox 100% on ETT vent; aa9 02:48 BP 132 / 73; Pulse 99; Resp 16 A; Temp 97.0(C); Pulse Ox 100% on ETT vent; aa9 02:53 BP 119 / 77; Pulse 103; Resp 16 A; Temp 97.0(C); Pulse Ox 100% on ETT vent; aa9 03:10 BP 135 / 84; Pulse 100; Resp 17 A; Temp 97.0(C); Pulse Ox 100% on ETT vent; aa9 03:15 BP 130 / 79; Pulse 105; Resp 16 A; Temp 96.7(C); Pulse Ox 100% on ETT vent; aa9 03:20 BP 132 / 75; Pulse 100; Resp 15 A; Temp 96.7(C); Pulse Ox 100% on ETT vent; aa9 03:25 BP 138 / 81; Pulse 100; Resp 16 A; Temp 96.6(C); Pulse Ox 100% on ETT vent; aa9 03:30 BP 135 / 81; Pulse 100; Resp 16 A; Temp 96.6(C); Pulse Ox 100% on ETT vent; aa9 03:45 BP 134 / 87; Pulse 104; Resp 16 A; Temp 96.5(C); Pulse Ox 100% on ETT vent; aa9 04:00 BP 149 / 96; Pulse 104; Resp 16 A; Temp 96.6(C); Pulse Ox 100% on ETT vent; aa9 04:15 BP 155 / 86; Pulse 110; Resp 17 A; Temp 96.6(C); Pulse Ox 100% on ETT vent; aa9 04:30 BP 147 / 70; Pulse 106; Resp 16 A; Temp 96.6(C); Pulse Ox 100% on ETT vent; aa9 04:55 BP 130 / 79; Pulse 110; Resp 17 A; Temp 96.6(C); Pulse Ox 100% on ETT vent; aa9 05:00 BP 139 / 32; Pulse 116; Resp 16 A; Temp 98.6(C); Pulse Ox 100% on ETT vent; aa9 05:10 BP 143 / 88; Pulse 119; Resp 16 A; Temp 97.0(C); Pulse Ox 100% on ETT vent; aa9 05:47 BP 136 / 86; Pulse 117; Resp 8 S; Temp 97.2(C); Pulse Ox 70% on R/A; aa9 05:50 BP 140 / 119; Pulse 115; Resp 8 S; Temp 97.2(C); Pulse Ox 68% on R/A; aa9 05:52 Pulse 115; Resp 7 S; Temp 97.2(C); Pulse Ox 66% on R/A; aa9 05:54 BP 109 / 75; Pulse 114; Resp 7 S; Temp 97.2(C); Pulse Ox 54% on R/A; aa9 05:57 Pulse 115; Resp 7 S; Temp 97.2(C); Pulse Ox 68% on R/A; aa9 06:05 BP 138 / 72; Pulse 114; Resp 7 S; Temp 97.3(C); Pulse Ox 78% on R/A; aa9 06:13 BP 123 / 70; Pulse 115; Resp 6 S; Temp 97.4(C); Pulse Ox 75% on R/A; aa9 07:20 BP 120 / 58; Pulse 117; Resp 16; Temp 98.0(C); Pulse Ox 78% on R/A; vg1 07:30 BP 123 / 66; Pulse 117; Resp 16; Temp 98.1(C); Pulse Ox 77% on R/A; vg1 07:45 BP 125 / 68; Pulse 117; Resp 16; Temp 98.2(C); Pulse Ox 79% on R/A; vg1 08:00 BP 114 / 74; Pulse 117; Resp 17; Temp 98.3(C); Pulse Ox 76% on R/A; vg1 08:15 BP 129 / 111; Pulse 117; Resp 20; Temp 98.4(C); Pulse Ox 83% on R/A; vg1 08:45 BP 136 / 61; Pulse 119; Resp 23; Temp 98.6(C); Pulse Ox 85% on R/A; vg1 09:15 BP 135 / 70; Pulse 119; Resp 20; Temp 98.7(C); Pulse Ox 86% on R/A; vg1 09:45 BP 122 / 77; Pulse 120; Resp 21; Temp 98.8(C); Pulse Ox 87% on R/A; vg1 10:15 BP 121 / 65; Pulse 117; Resp 16; Temp 99.0(C); Pulse Ox 74% on R/A; vg1 10:45 BP 118 / 70; Pulse 118; Resp 22; Temp 99.0(C); Pulse Ox 87% on R/A; vg1 11:15 BP 129 / 67; Pulse 119; Resp 25; Temp 98.9(C); Pulse Ox 89% on R/A; vg1 18:50 BP 129 / 77; Pulse 134; Resp 32; Pulse Ox 90% on R/A; eh3 ED Course: 01:38 Maintain EMS IV. Dressing intact. Site clean \\T\\ dry. Gauge \\T\\ site: 20 G L AC. aa 9 01:38 Patient has correct armband on for positive identification. Client placed on continuous aa9 cardiac and pulse oximetry monitoring. NIBP monitoring applied. 01:40 Inserted saline lock: 18 gauge in right antecubital area, using aseptic technique. aa9 01:40 Assist ventilation with ventilator. aa9 01:41 Patient arrived in ED. ms3 01:48 En Montague DO is Attending Physician. ms3 01:50 Arm band placed on. aa9 02:01 Adrianne Kim, ZOE is Primary Nurse. kd3 02:04 Hill cath inserted, using sterile technique, 16 Fr., by game and fish protector, balloon inflated, to aa9 gravity drainage. 02:04 OG tube 16 F placed at 0204, Placed in intermitted suction. aa9 02:08 Triage completed. aa9 02:40 Assisted provider with central line placement. Set up central line tray. Triple lumen aa9 line placed in right internal jugular. Line placed by En Montague DO Placement verified by blood return. 02:50 Warm blanket given. Head of bed elevated. aa9 03:01 XRAY Chest (1 view) In Process Unspecified. EDMS 03:20 CT Head C Spine In Process Unspecified. EDMS 05:10 IV discontinued, intact, bleeding controlled, No redness/swelling at site. Pressure aa9 dressing applied, 18 G R AC, 20 G L AC, Central line on R jugular, DC'd. 05:49 Suctioned orally - moderate amount thick brown. aa9 07:17 Attending Physician role handed off by En Montague DO mallory 07:17 Romero Chao MD is Attending Physician. mallory 08:16 Chuy Bal MD is Hospitalizing Provider. mallory 17:31 Primary Nurse role handed off by Adrianne Kim, ZOE tp1 17:31 Shonna Soria, ZOE is Primary Nurse. tp1 19:06 Primary Nurse role handed off by Shonna Soria, ZOE tw5 19:06 Shonna Fall is Primary Nurse. tw5 Administered Medications: 01:55 Drug: Levophed (norepinephrine) 0.1 mcg/kg/min Route: IV; Rate: calculated rate; Site: aa9 left antecubital; 02:12 Drug: NS 0.9% 1000 ml Route: IV; Rate: 1 bolus; Site: left antecubital; aa9 02:13 Drug: Propofol 5 mcg/kg/min Route: IV; Rate: calculated rate; Site: left antecubital; aa9 02:22 CANCELLED (Other Intervention Used): Propofol 0.5 mg/kg IVP once; Document RASS score. aa9 03:30 Drug: fentaNYL (PF) 50 mcg Route: IVP; Site: left antecubital; kd3 04:24 Follow up: Response: No adverse reaction; RASS: Unarousable (-5) aa9 Medication: 05:58 VIS not applicable for this client. aa9 Outcome: 08:20 Decision to Hospitalize by Provider. mallory 12:12 Admitted to ER Hold. Please see [facility] for further documentation. tp1 12:12 critical 12:12 Instructed on instructed family on admission 19:27 Admitted to Med/surg room 202, with chart, Report called to called report to Yamilex tw5 19:27 Patient left the ED. tw5 Signatures: Dispatcher [employer] EDRomero Will MD MD cha Ballard, Brenda, RN RN Litzy Mckeon, RN RN vg1 En Montague DO DO ms3 Shonna Fall tw5 Saurabh Santos RN RN as6 Adrianne Kim RN RN kd3 Shonna Soria, RN RN tp1 Mahogany Cormier, ZOE ENRIQUEZ 3 Yokasta Hoang RN RN aa9 Corrections: (The following items were deleted from the chart) 02:11 02:09 Inserted saline lock: 18 gauge in right antecubital area, using aseptic aa9 technique. aa9 02:11 02:09 Assisted provider with central line placement. Set up central line tray. Triple aa9 lumen line placed in left internal jugular. Line placed by En Montague DO Placement verified by blood return, Dressed with Tegaderm, aa9 02:14 02:13 BP 144 / 85; Pulse 106bpm; Resp 15bpm; Pulse Ox 100% ET / Ventilator; aa9 aa9 02:19 02:10 General: Appears aa9 aa9 02:22 02:11 Propofol 0.5 mg/kg IVP in left antecubital aa9 aa9 02:32 02:28 BP 138 / 86; Pulse 93bpm; Resp 23bpm; Pulse Ox 100% ET / Ventilator; aa9 aa9 04:06 01:38 General: Appears obese, Behavior is unresponsive. aa9 aa9 04:08 02:00 Reassessment: No changes from previously documented assessment. aa9 aa9 04:10 02:29 Reassessment: No changes from previously documented assessment. aa9 04:11 02:29 Reassessment: aa9 aa9 04:11 02:36 Reassessment: No changes from previously documented assessment. aa9 9 04:11 02:47 Reassessment: No changes from previously documented assessment. aa9 9 04:14 02:36 Neuro: Level of Consciousness is unresponsive, aa9 aa9 04:21 02:15 Pain: Unable to use pain scale. Patient is intubated. Patient is unresponsive. aa9aa9 05:51 05:47 BP 136 / 86; Pulse 117bpm; Resp 23bpm; Spontaneous; Pulse Ox 70% RA; Temp 97.2F aa9 Catheter; aa9 10:01 08:30 Reassessment: Patient appears in no apparent distress at this time. suction vg1 completed vg1
--- NOTE | 2022-04-13 08:21 | EDPHYS ---
Physician Documentation [facility] Name: Wil Jacobson Age: 76 yrs Sex: Male : 1945 Arrival Date: 04/13/2022 Time: 01:41 Bed 3 Private MD: ED Physician Romero Chao HPI: 04/13 04:00 This 76 yrs old Male presents to ER via EMS with complaints of Cardiac arrest. ms3 04:00 Preceding the arrest, the patient collapsed, shortness of breath. The arrest occurred ms3 at home. Pre-hospital course: The arrest was witnessed by family. Bystanders at the scene did not perform CPR. EMS care prior to arrival: initiation of ACLS, peripheral IV, intubation ACLS details: Airway: oral intubation. 05:33 76-year-old male presents via clued EMS status post cardiac arrest. EMS states patient ms3 collapsed at 1230 and fell while going to the bathroom. At 12:39 AM EMS arrived without bystander CPR being performed. EMS states patient's initial rhythm was asystole. EMS administered 2 rounds of epinephrine and achieved return of spontaneous circulation. A 6.5 endotracheal tube was placed at 22 inches at the teeth. In route to the emergency department patient lost pulses and pulses were regained after 1 mg of epinephrine were administered.. Historical: - Allergies: 02:08 Unable to obtain; aa9 - Home Meds: 02:08 Unable to obtain [Active]; aa9 - PMHx: 02:08 COPD; Tachycardia; Cirrhosis of liver; aa9 - PSHx: 02:08 Unable to Obtain; aa9 - Immunization history:: Adult Immunizations unknown. - Social history:: Smoking status: unknown. ROS: 05:33 Unable to obtain ROS due to Unresponsive. ms3 Exam: 01:41 ECG was reviewed by the Attending Physician. ms3 05:33 Constitutional: The patient appears obese, obviously ill, pale. ms3 05:33 Head/face: Exam is negative for 05:33 Eyes: Pupils: are fixed and dilated, Conjunctiva: normal, Corneas: are normal. 05:33 Neck: External neck: JVD present. 05:33 Chest/axilla: Inspection: Chest wall edema. 05:33 Cardiovascular: Rate: tachycardic, Rhythm: irregularly irregular, Pulses: Pulses are 2+ in left femoral artery. Edema: 4+ edema to level of left midcalf, left ankle, right midcalf and right ankle. 05:40 Respiratory: Respirations: agonal breathing over machine, Breath sounds: rales, that ms3 are moderate, are scattered, Respiratory rate: BVM 05:40 Abdomen/GI: Inspection: distension, Abdominal wall pitting edema. Vital Signs: 01:39 BP 112 / 67; Pulse 130; Resp 14; Pulse Ox 100% on ETT ambu; aa9 01:45 BP 86 / 59; Pulse 109; Resp 13 A; Pulse Ox 100% on ETT vent; aa9 01:47 BP 89 / 60; Pulse 96; Resp 21 A; Pulse Ox 98% on ETT vent; aa9 01:56 BP 132 / 81; Pulse 112; Resp 21; Pulse Ox 100% on ETT vent; aa9 02:00 BP 140 / 86; Pulse 108; Resp 17 A; Pulse Ox 100% on ETT vent; aa9 02:05 Weight 115 kg; aa9 02:05 BP 144 / 85; Pulse 108; Resp 17 A; Pulse Ox 100% on ETT vent; aa9 02:10 BP 144 / 85; Pulse 106; Resp 15; Pulse Ox 100% on ETT vent; aa9 02:14 BP 134 / 90; Pulse 100; Resp 11; Pulse Ox 100% on ETT vent; aa9 02:20 BP 134 / 80; Pulse 104; Resp 14; Pulse Ox 100% on ETT vent; aa9 02:24 BP 144 / 82; Pulse 100; Resp 17; Pulse Ox 99% on ETT vent; aa9 02:28 BP 138 / 86; Pulse 93; Resp 23; Temp 97.1(C); Pulse Ox 100% on ETT vent; aa9 02:33 BP 138 / 77; Pulse 100; Resp 16 A; Temp 97.1(C); Pulse Ox 100% on ETT vent; aa9 02:39 BP 129 / 70; Pulse 102; Resp 16; Temp 97.1(C); Pulse Ox 100% on ETT vent; aa9 02:43 BP 134 / 83; Pulse 106; Resp 16 A; Temp 97.1(C); Pulse Ox 100% on ETT vent; aa9 02:48 BP 132 / 73; Pulse 99; Resp 16 A; Temp 97.0(C); Pulse Ox 100% on ETT vent; aa9 02:53 BP 119 / 77; Pulse 103; Resp 16 A; Temp 97.0(C); Pulse Ox 100% on ETT vent; aa9 03:10 BP 135 / 84; Pulse 100; Resp 17 A; Temp 97.0(C); Pulse Ox 100% on ETT vent; aa9 03:15 BP 130 / 79; Pulse 105; Resp 16 A; Temp 96.7(C); Pulse Ox 100% on ETT vent; aa9 03:20 BP 132 / 75; Pulse 100; Resp 15 A; Temp 96.7(C); Pulse Ox 100% on ETT vent; aa9 03:25 BP 138 / 81; Pulse 100; Resp 16 A; Temp 96.6(C); Pulse Ox 100% on ETT vent; aa9 03:30 BP 135 / 81; Pulse 100; Resp 16 A; Temp 96.6(C); Pulse Ox 100% on ETT vent; aa9 03:45 BP 134 / 87; Pulse 104; Resp 16 A; Temp 96.5(C); Pulse Ox 100% on ETT vent; aa9 04:00 BP 149 / 96; Pulse 104; Resp 16 A; Temp 96.6(C); Pulse Ox 100% on ETT vent; aa9 04:15 BP 155 / 86; Pulse 110; Resp 17 A; Temp 96.6(C); Pulse Ox 100% on ETT vent; aa9 04:30 BP 147 / 70; Pulse 106; Resp 16 A; Temp 96.6(C); Pulse Ox 100% on ETT vent; aa9 04:55 BP 130 / 79; Pulse 110; Resp 17 A; Temp 96.6(C); Pulse Ox 100% on ETT vent; aa9 05:00 BP 139 / 32; Pulse 116; Resp 16 A; Temp 98.6(C); Pulse Ox 100% on ETT vent; aa9 05:10 BP 143 / 88; Pulse 119; Resp 16 A; Temp 97.0(C); Pulse Ox 100% on ETT vent; aa9 05:47 BP 136 / 86; Pulse 117; Resp 8 S; Temp 97.2(C); Pulse Ox 70% on R/A; aa9 05:50 BP 140 / 119; Pulse 115; Resp 8 S; Temp 97.2(C); Pulse Ox 68% on R/A; aa9 05:52 Pulse 115; Resp 7 S; Temp 97.2(C); Pulse Ox 66% on R/A; aa9 05:54 BP 109 / 75; Pulse 114; Resp 7 S; Temp 97.2(C); Pulse Ox 54% on R/A; aa9 05:57 Pulse 115; Resp 7 S; Temp 97.2(C); Pulse Ox 68% on R/A; aa9 06:05 BP 138 / 72; Pulse 114; Resp 7 S; Temp 97.3(C); Pulse Ox 78% on R/A; aa9 06:13 BP 123 / 70; Pulse 115; Resp 6 S; Temp 97.4(C); Pulse Ox 75% on R/A; aa9 07:20 BP 120 / 58; Pulse 117; Resp 16; Temp 98.0(C); Pulse Ox 78% on R/A; vg1 07:30 BP 123 / 66; Pulse 117; Resp 16; Temp 98.1(C); Pulse Ox 77% on R/A; vg1 07:45 BP 125 / 68; Pulse 117; Resp 16; Temp 98.2(C); Pulse Ox 79% on R/A; vg1 08:00 BP 114 / 74; Pulse 117; Resp 17; Temp 98.3(C); Pulse Ox 76% on R/A; vg1 08:15 BP 129 / 111; Pulse 117; Resp 20; Temp 98.4(C); Pulse Ox 83% on R/A; vg1 08:45 BP 136 / 61; Pulse 119; Resp 23; Temp 98.6(C); Pulse Ox 85% on R/A; vg1 09:15 BP 135 / 70; Pulse 119; Resp 20; Temp 98.7(C); Pulse Ox 86% on R/A; vg1 09:45 BP 122 / 77; Pulse 120; Resp 21; Temp 98.8(C); Pulse Ox 87% on R/A; vg1 10:15 BP 121 / 65; Pulse 117; Resp 16; Temp 99.0(C); Pulse Ox 74% on R/A; vg1 10:45 BP 118 / 70; Pulse 118; Resp 22; Temp 99.0(C); Pulse Ox 87% on R/A; vg1 11:15 BP 129 / 67; Pulse 119; Resp 25; Temp 98.9(C); Pulse Ox 89% on R/A; vg1 18:50 BP 129 / 77; Pulse 134; Resp 32; Pulse Ox 90% on R/A; eh3 Procedures: 07:26 Central Line: the site was prepped with in sterile fashion, a triple lumen catheter was ms3 inserted, in the right in 1 attempts. placement was verified, by blood return, the site was dressed with Tegaderm, the patient tolerated the procedure, well, Line went into right subclavian vein. MDM: 01:48 Patient medically screened. ms3 04:57 ED course: Patient's , Janice, wishes for care to be withdrawn as patient did not ms3 wish to be on life support. Propofol ggt stopped and will pull ET tube.. 05:41 ED course: ET tube being withdrawn at this time. Patient's , Janice, at bedside.. ms3 05:42 Differential diagnosis: arrythmia, cardiac arrest, respiratory arrest. Data reviewed: ms3 vital signs, nurses notes, lab test result(s), EKG, radiologic studies. Data interpreted: quality assurance monitor body: rate is 119 beats/min, rhythm is atrial fibrillation, with no ectopy, Interpretation: atrial fibrillation, tachycardia. Counseling: I had a detailed discussion with the patient and/or guardian regarding: the historical points, exam findings, and any diagnostic results supporting the discharge/admit diagnosis, lab results, radiology results. 07:00 ED course: Patient with elevated LA, and respiratory failure s/p cardiac arrest. No ms3 source of bacterial infection suspected. CXR findings in context with PE c/w pulmonary edema.. 08:14 Patient medically screened. mallory 04/13 01:46 Order name: Basic Metabolic Panel; Complete Time: 03:15 kb 04/13 01:46 Order name: CBC with Diff; Complete Time: 03:15 kb 04/13 01:46 Order name: LFT's; Complete Time: 03:15 kb 04/13 01:46 Order name: Magnesium; Complete Time: 03:15 kb 04/13 01:46 Order name: NT PRO-BNP; Complete Time: 03:15 kb 04/13 01:46 Order name: PT-INR; Complete Time: 03:15 kb 04/13 01:46 Order name: Troponin HS; Complete Time: 03:15 kb 04/13 01:46 Order name: Lactate; Complete Time: 03:15 kb 04/13 02:02 Order name: Glucose, Ancillary Testing; Complete Time: 03:15 EDMS 04/13 02:11 Order name: Urine Dipstick-Ancillary; Complete Time: 03:15 EDMS 04/13 02:13 Order name: ABG Arterial Blood Gas; Complete Time: 03:15 EDMS 04/13 02:19 Order name: Manual Differential; Complete Time: 03:15 EDMS 04/13 02:26 Order name: SARS RAPID; Complete Time: 03:15 aa9 04/13 02:46 Order name: Urine Microscopic Only; Complete Time: 03:15 aa9 04/13 01:46 Order name: CT Head C Spine kb 04/13 01:46 Order name: XRAY Chest (1 view) kb 04/13 01:46 Order name: EKG; Complete Time: 01:48 kb 04/13 01:46 Order name: Cardiac monitoring; Complete Time: 02:11 kb 04/13 01:46 Order name: EKG - Nurse/Tech; Complete Time: 02:11 kb 04/13 01:46 Order name: IV Saline Lock; Complete Time: 02:11 kb 04/13 01:46 Order name: Labs collected and sent; Complete Time: 02:11 kb 04/13 01:46 Order name: O2 Per Protocol; Complete Time: 02:11 kb 04/13 02:46 Order name: Urine Culture 04/13 02:55 Order name: Urine Dipstick-Ancillary; Complete Time: 03:15 EDMS 04/13 08:58 Order name: Case Management Consult 04/13 01:46 Order name: O2 Sat Monitoring; Complete Time: 02:11 kb 04/13 02:46 Order name: Urine Dipstick-Ancillary (obtain specimen); Complete Time: 02:54 aa9 04/13 04:54 Order name: Misc. Order: Please withdraw care per patient's , Janice and patient's ms3 request.; Complete Time: 05:47 EC:41 Rate is 104 beats/min. Rhythm is irregularly irregular. QRS [place] is Normal. Clinical ms3 impression: Atrial Fibrillation and with RVR. Interpreted by me. Reviewed by me. Administered Medications: 01:55 Drug: Levophed (norepinephrine) 0.1 mcg/kg/min Route: IV; Rate: calculated rate; Site: aa9 left antecubital; 02:12 Drug: NS 0.9% 1000 ml Route: IV; Rate: 1 bolus; Site: left antecubital; aa9 02:13 Drug: Propofol 5 mcg/kg/min Route: IV; Rate: calculated rate; Site: left antecubital; aa9 02:22 CANCELLED (Other Intervention Used): Propofol 0.5 mg/kg IVP once; Document RASS score. aa9 03:30 Drug: fentaNYL (PF) 50 mcg Route: IVP; Site: left antecubital; kd3 04:24 Follow up: Response: No adverse reaction; RASS: Unarousable (-5) aa9 Disposition: 07:25 Critical Care:. ms3 07:27 Chart complete. ms3 Disposition Summary: 04/13/22 08:20 Hospitalization Ordered Hospitalization Status: Inpatient Admission mallory Provider: Chuy Bal cha Location: Telemetry/MedSurg (Inpatient) mallory Condition: Critical mallory Problem: chronic mallory Symptoms: have worsened mallory Bed/Room Type: Standard [facility] Room Assignment: 202(04/13/22 16:50) bd Diagnosis - Cardiac arrest due to underlying cardiac condition mallory - Hypotension, unspecified mallory - Do not resuscitate mallory Forms: - Medication Reconciliation Form mallory - SBAR form mallory Critical care time excluding procedures: 07:25 Critical care time: Bedside Care: 55 minutes, Family Intervention: 15 minutes. Total ms3 time: 70 minutes Signatures: Dispatcher [employer] Lucy Saavedra, PASTY BERRIOS-Bee Ramirez Corey, MD MD cha Sims, Marcus, DO DO ms3 Adrianne Kim RN RN kd3 Yokasta Hoang RN RN aa9 Corrections: (The following items were deleted from the chart) 02:22 02:17 Propofol 0.5 mg/kg IVP once; Document RASS score. ordered. aa9 aa9 02:22 02:22 Propofol 0.5 mg/kg IVP once; Document RASS score. ordered. aa9 aa9 05:35 04:00 Preceding the arrest, the patient collapsed, shortness of breath ms3 ms3 16:50 08:20 [facility] bruno
[2022-04-13] MEDS ORDERED: LORazepam 2 MG/ML VIAL IV PRN (08:53)
[2022-04-13] MEDS ORDERED: ONDANSETRON 4 MG/2 ML VIAL IV PRN (08:53)
[2022-04-13] MEDS ORDERED: MORPHINE 4 MG/ML SYR IV PRN (08:53)
[2022-04-13] MEDS ORDERED: ACETAMINOPHEN 500 MG TAB PO PRN (08:53)
--- NOTE | 2022-04-13 09:13 | P.HP ---
Certification for Inpatient Patient admitted to: Inpatient With expected LOS: >2 Midnights Patient will require the following post-hospital care: Hospice Practitioner: I am a practitioner with admitting privileges, knowledge of patient current condition, hospital course, and medical plan of care. Services: Services provided to patient in accordance with Admission requirements found in Title 42 Section 412.3 of the Code of Federal Regulations Patient History Date of Service: 04/13/22 Reason for admission: Cardiac arrest History of Present Illness: Patient is a 76-year-old gentleman who came to the hospital with a cardiac arrest. Patient's family stated that they did not want any aggressive measures. Patient was extubated and comfort measures are in place. We will admit to inpatient hospice. Allergies No Known Allergies Allergy (Unverified 07/19/18 13:42) Home Medications: Allopurinol 300 mg PO DAILY 07/19/18 Calcium Carbonate 1 tab PO TID 07/19/18 Glycopyrrolate/Formoterol Fum [Bevespi Aerosphere Inhaler] 1 unit IH BID 07/19/18 Metoprolol Succinate 25 mg PO DAILY 07/19/18 Albuterol Sulfate [Proair Hfa] 8.5 gm IH TID PRN #1 hfa.aer.ad 07/20/18 Benzonatate [Tessalon Perle*] 100 mg PO TID PRN #30 cap 07/20/18 Fluticasone [Flonase 50MCG Nasal Lanexa*] 1 sprays MELISSA BID #1 btl 07/20/18 Guaifenesin [Mucinex] 600 mg PO BID #30 tab.er.12h 07/20/18 Nicotine [Nicoderm*] 21 mg TD DAILY #30 patch.td24 07/20/18 Pantoprazole [Protonix Tab*] 40 mg PO DAILYAC #30 tab 07/20/18 Thiamine HCl [Vitamin B-1*] 100 mg PO DAILY #30 tablet 07/20/18 predniSONE [Prednisone*] 20 mg PO SEECOM #15 tab 07/20/18 - Past Medical/Surgical History Diabetic: No -: COPD -: Tachycardia -: GERD -: Gout -: GERD -: Hernia repair Psychosocial/ Personal History: Patient is . He has 1 child. He is retired. - Family History Father Medical History: Cancer Mother Medical History: Cancer Notes: thyroid cancer - Social History Alcohol use: Yes CD- Drugs: No Caffeine use: Yes Review of Systems is unable to be obtained Physical Examination - Vital Signs Temperature: 98 F Blood Pressure: 100/60 Pulse: 111 Respirations: 30 Pulse Ox (%): 85 - Physical Exam General: Unresponsive Respiratory: Diminished Cardiovascular: Regular rate/rhythm Gastrointestinal: Hypoactive Integumentary: Other (Cool) Neurological: Other (Unresponsive) - Studies Laboratory Data (last 24 hrs) 04/13/22 01:44: PT 14.3 H, INR 1.29 04/13/22 01:44: WBC 13.20 H, Hgb 7.3 L, Hct 25.0 L, Plt Count 135 L 04/13/22 01:44: Sodium 136, Potassium 3.5, BUN 51 H, Creatinine 2.53 H, Glucose 261 H, Magnesium 1.8, Total Bilirubin 0.6, AST 27, ALT 28, Alkaline Phosphatase 81 Assessment & Plan - Problems (Diagnosis) (1) Cardiac arrest Current Visit: Yes Status: Acute (2) DNR (do not resuscitate) Current Visit: Yes Status: Acute (3) Palliative care patient Current Visit: Yes Status: Acute - Plan Plan: 1. Comfort measures 2. Morphine and Ativan as needed 3. DNR 4. Supportive care Discharge Plan: Other Plan to discharge in: 24 Hours - Advance Directives Does patient have a Living Will: Yes Does patient have a Durable POA for Healthcare: Yes - Code Status/Comfort Care Comfort Measures: Hospice Care Critical Care: No Time Spent Managing PTS Care (In Minutes): 35
[2022-04-13] MEDS ORDERED: LORazepam 2 MG/ML VIAL IV ONE (10:52)
[2022-04-13] MEDS ORDERED: LORazepam 2 MG/ML VIAL ONE (12:10)
[2022-04-13] MEDS ORDERED: MORPHINE 2 MG/ML SYR IV ONE (12:20)
[2022-04-13 13:46] VITALS: BMI 30.1
[2022-04-13] MEDS ORDERED: ACETAMINOPHEN 325 MG/SUPP PR ONE ×2 (14:06→14:34)
[2022-04-13] MEDS ORDERED: MORPHINE 2 MG/ML SYR ONE ×2 (14:33→17:10)
[2022-04-13] MEDS ORDERED: MORPHINE 2 MG/ML SYR IM ONE (17:17)
--- NOTE | 2022-04-13 17:23 | RAD REPORT ---
EXAM DESCRIPTION: RAD - Chest Single View - 04/13/2022 3:00 am ADDENDUM #1 Right internal jugular central venous catheter courses laterally with the tip projecting over the exp ected region of the proximal to mid right subclavian vein. Impression. Electronically signed by: Federico Champion MD 04/13/2022 3:49 AM CDT End of Addendum EXAM DESCRIPTION: XR Chest, 1 View CLINICAL HISTORY: Post cardiac arrest TECHNIQUE: Frontal view of the chest. COMPARISON: No relevant prior studies available. FINDINGS: Lungs: Central pulmonary vascular and interstitial prominence and patchy bilateral perih ilar opacities. Pleural space: Blunting of the right costophrenic angle. No pneumothorax. Heart: The cardiac silhouette is enlarged. Mediastinum: Unremarkable. Bones/joints: Unremarkable. Vasculature: Thoracic aortic atherosclerosis. Tubes, lines and devices: Endotracheal tube tip projects 3.8 cm proximal to the abran. Nasogastr ic tube tip collimated off the [id number]. The distal visualized portion projects over the left up per quadrant in the expected region of the stomach. IMPRESSION: Findings which may be related to mild pulmonary congestion including possible small righ t pleural effusion. Superimposed infection not excluded. Electronically signed by: Federico Champion MD 04/13/2022 3:35 AM CDT Due to temporary technical issues with the PACS/Fluency reporting system, reports are being signed by the in house radiologists without review as a courtesy to insure prompt reporting. The interpreting radiologist is fully responsible for the content of the report.
--- NOTE | 2022-04-13 19:21 | RAD REPORT ---
EXAM DESCRIPTION: CT - Head C Spine Mpr Wo Con - 04/13/2022 3:20 am ADDENDUM #1 Addendum: Dr. Plunkett discussed these critical findings related to malpositioning of the CVC with Dr. Montague via shahla albarado at approximately 04:02 hours CRAB BACKER on 04/13/2022. Electronically signed by: Adriel Plunkett MD 04/13/2022 4:05 AM CDT End of Addendum EXAM DESCRIPTION: CT Head and Cervical Spine Without Intravenous Contrast CLINICAL HISTORY: The patient is 76 years old and is Male; fall TECHNIQUE: Axial computed tomography images of the head/brain and cervical spine without intravenous contrast. Sagittal and coronal reformatted images were created and reviewed. This CT exam was pe rformed using one or more of the following dose reduction techniques: automated exposure control, a djustment of the mA and/or kV according to patient size, and/or use of iterative reconstruction techn ique. COMPARISON: No relevant prior studies available. FINDINGS: BRAIN: Areas of decreased attenuation in the deep cerebral white matter are consistent w ith small vessel ischemic/degenerative changes. The cerebral and cerebellar sulci are prominent consistent with brain atrophy. No hemorrhage. VENTRICLES: Unremarkable. No ventriculomegaly. SKULL: See below. SINUSES: See below. MASTOID AIR CELLS: Partial opacification of the bilateral mastoid air cells, left greater than righ t. VERTEBRAE: Multilevel degenerative changes of the cervical spine with no acute fracture, subluxation, or dislocation. Multilevel partial degenerative facet fusion. DISCS/SPINAL CANAL/NEURAL FORAMINA: No focal high-grade bony canal stenosis, though there is multilev el neuroforaminal narrowing secondary to degenerative changes. OTHER BONES/JOINTS: No fracture of the calvarium or visualized facial bones. SOFT TISSUES: See below. VASCULATURE: Atherosclerotic disease. NASAL CAVITY/SEPTUM: Air-fluid levels noted within the bilateral nasal passages, as well as partial opacification of the bilateral ethmoid air cells, presumably related to intubation. LUNGS: Right apical scarring and bilateral emphysematous changes. Partially visualized bilateral pleu ral effusions. OTHER: Malpositioning of the right IJ approach CVC, with tip terminating within the right subclavian vein. Extensive soft tissue swelling involving the bilateral inferior neck, presumably related to rec ent CVC placement. Cannot evaluate for active bleeding in the absence of intravenous contrast. IMPRESSION: 1. No acute intracranial abnormality or acute osseous abnormality of the cervical spin e. 2. Chronic, degenerative, and senescent changes. 3. Emphysema with partially visualized bilateral pleural effusions. 4. Malpositioning of the right IJ CVC, with tip terminating in the right subclavian vein. 5. Presumed postprocedural inflammatory changes involving the bilateral inferior neck soft tissues. C annot evaluate for active bleeding in the absence of intravenous contrast. Close clinical follow-up r ecommended. Electronically signed by: Adriel Plunkett MD 04/13/2022 3:56 AM CDT Due to temporary technical issues with the PACS/Fluency reporting system, reports are being signed by the in house radiologists without review as a courtesy to insure prompt reporting. The interpreting radiologist is fully responsible for the content of the report.
[2022-04-13] MEDS ORDERED: NOREPINEPHRINE BITARTRATE/D5W 4 MG/250 ML BAG IV ONE (19:22)
--- NOTE | 2022-04-14 13:41 | EKG ---
Test Date: 2022-04-13 Test Time: 01:41:44 Field Service Manager: CIPRIANO MEASUREMENT RESULTS: Intervals: Rate: 104 DC: QRSD: 142 QT: 342 QTc: 449 [place]: P: DC: QRS: 77 T: -59 INTERPRETIVE STATEMENTS: Atrial fibrillation with rapid ventricular response with premature ventricular or aberrantly conducted complexes Right bundle branch block Abnormal ECG Compared to ECG 07/19/2018 09:54:50 Ventricular premature complex(es) now present Right bundle-branch block now present Sinus tachycardia no longer present ST (T wave) deviation no longer present Electronically Signed On 04-14-22 13:38:47 CDT by Contreras Brody
[2022-04-15 09:01] VITALS: TEMP 98.9
[2022-04-15 09:03] VITALS: BP 129/77; O2SAT 90
== END 2022-04-13 23:30 | disposition expired | DRG 296 ==
LOC: ER 01:36 → ERHOLD 08:54 → 2ND 20:26
PROVIDERS: ADMIT Hospitalist; ATTEND Hospitalist
PROC: 5A1935Z Respiratory Ventilation, Less than 24 Consecutive Hours (ICD-10-PCS; principal; 2022-04-13)
DX: I46.2 Cardiac arrest due to underlying cardiac condition (principal); J96.90 Respiratory failure, unspecified, unspecified whether with hypoxia or hypercapnia; J81.1 Chronic pulmonary edema; J44.9 Chronic obstructive pulmonary disease, unspecified; I95.9 Hypotension, unspecified; K21.9 Gastro-esophageal reflux disease without esophagitis; M10.9 Gout, unspecified; Z66 Do not resuscitate; Z51.5 Encounter for palliative care; Z79.52 Long term (current) use of systemic steroids; Z79.899 Other long term (current) drug therapy; Z20.822 Contact with and (suspected) exposure to COVID-19
CPT/HCPCS: 36415; 51702; 70450; 71045; 72125; 80048; 80076; 81003; 81015; 82805; 82947; 83605; 83735; 83880; 84484; 85025; 85610; 87086; 87088; 87811; 93005; 94002; 96374; 96375; 99291; 99292; J2270; J2704; J3010; J7030